=== PATIENT | male | born 1970 | race Caucasian/White ===

== ENCOUNTER 2018-09-14 20:43 | Emergency (ER) | payer SELFPAY ==
[~2018-09-14] VITALS: Ht 177.8 cm; Wt 88.5 kg
[2018-09-14 20:56] VITALS: BP 144/104; Ht 177.8 cm; Wt 88.5 kg
== END 2018-09-14 20:56 | disposition left against medical advice (07) ==
LOC: ED 20:43
DX: Z53.21 Procedure and treatment not carried out due to patient leaving prior to being seen by health care provider (principal)

== ENCOUNTER 2019-05-29 20:28 | Emergency (ER) | payer SELFPAY ==
[~2019-05-29] VITALS: Ht 180.3 cm; Wt 87.5 kg
[2019-05-29 20:35] VITALS: Ht 180.3 cm; Wt 87.5 kg
[2019-05-29 21:34] LABS: BASOPHIL % 0.7 % (0-2); PLATELET COUNT 223 x10^3mcL (130-400); RED CELL DISTRIBUTION WIDTH 13.3 % (11.5-14.5)
[2019-05-29 21:55] LABS: CALCIUM 9.3 mg/dL (8.5-10.1); CARBON DIOXIDE 20.6 mmol/L (21-32); CHLORIDE SERUM 104 mmol/L (98-107); GFR1 > 60 mL/min; GLUCOSE SERUM 94 mg/dL (74-106); POTASSIUM SERUM 4.2 mmol/L (3.5-5.1); SODIUM SERUM 138 mmol/L (136-145)
[2019-05-29 22:00] LABS: ALBUMIN 4.1 g/dL (3.4-5.0); ALKALINE PHOSPHATASE 95 U/L (46-116); ALT/SGPT 70 U/L (16-63); AST/SGOT 32 U/L (15-37); BILIRUBIN TOTAL 0.3 mg/dL (0.20-1.00); TOTAL PROTEIN, SERUM 8.2 g/dL (6.4-8.2)
[2019-05-29 22:56] VITALS: BP 157/98
== END 2019-05-29 22:56 | disposition home or self-care (01) ==
LOC: ED 20:28
PROVIDERS: Emergency Medicine
DX: R07.89 Other chest pain (principal); F41.9 Anxiety disorder, unspecified; I10 Essential (primary) hypertension
CPT/HCPCS: 36415